=== PATIENT | female | born 1965 | race American Indian/Alaskan Native ===

== ENCOUNTER 2016-11-21 09:39 | Emergency (ER) | payer BC ==
--- NOTE | 2016-11-21 10:08 | Emergency Department Report ---
Chief Complaint: Neuro Symptoms/Deficit Stated Complaint: HEADACHE/LEFT SIDE NUMBNESS Time Seen by Provider: 11/21/16 10:03 - HPI History of Present Illness: 51 y/o female complain of intermittent headache x 1 week .pt state headache is current 10 at present .pt denies any n/v/d at present .denies any blurry vision at present . 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 - ROS Review of Systems: per HPI - Exam Vital Signs: Vital Signs 11/21/16 09:41 Temperature 98.3 F Pulse Rate 85 Blood Pressure 176/116 Physical Exam: GENERAL: The patient is well-developed and well-nourished. Patient is in NAD. HENT: Normocephalic. Atraumatic. Patient has moist mucous membranes. Throat: No erythema, swelling or exudates. EYES: Extraocular motions are intact, PERRL NECK: Supple. No meningitic signs are noted. There is no adenopathy noted. CHEST/LUNGS: Clear to auscultation bilaterally. No wheezing, rales or rhonchi noted. There is no respiratory distress noted. HEART/CARDIOVASCULAR: Regular rate and rhythm. Normal S1 S2. No murmurs, rubs , clicks, or gallops. ABDOMEN: Abdomen is soft, nontender.. Bowel sounds normoactive. There is no abdominal distention. Negative rebound tenderness. : Deferred. SKIN: There is no rash. There is no edema. There is no diaphoresis. NEURO: The patient is A&Ox3. The patient has no focal neurologic deficits. MUSCULOSKELETAL: There is no tenderness or deformity. There is no limitation range of motion. PSYCH: Pt has appropriate mood and affect. MSE screening note: Focused history and physical exam performed. Due to findings the following was ordered: ED Disposition for MSE Condition: Stable
[2016-11-21 10:40] LABS: Basophils % (Auto) 0.4 % (0.0-1.8); Eosinophils % (Auto) 2.7 % (0.0-4.3); Mean Corpuscular HGB Conc 33 % (30-34); Mean Corpuscular Hemoglobin 30 pg (28-32); Mean Corpuscular Volume 90 fl (79-97); Platelet Count 226 K/mm3 (140-440); Red Blood Count 4.35 M/mm3 (3.65-5.03); Red Cell Distribution Width 13.9 % (13.2-15.2); White Blood Count 8.9 K/mm3 (4.5-11.0)
[2016-11-21 10:55] LABS: INR 0.95 (0.87-1.13)
[2016-11-21 10:56] LABS: Partial Thromboplastin Time 34.6 Sec. (24.2-36.6)
[2016-11-21 10:57] LABS: Bacteria,Urine 1+ /HPF (Negative); Bilirubin,Urine NEG (Negative); Blood,Urine SM (Negative); Ketones,Urine NEG (Negative); Leukocyte Esterase,Urine NEG (Negative); Mucus,Urine FEW /HPF; Nitrite,Urine NEG (Negative); Protein,Urine <15 mg/dL mg/dL (Negative); Urobilinogen,Urine < 2.0 mg/dL (<2.0)
[2016-11-21 11:07] LABS: Alanine Aminotransferase 10 units/L (7-56); Albumin 4.1 g/dL (3.9-5); Albumin/Globulin Ratio 1.2 %; Alkaline Phosphatase 86 units/L (35-129); Anion Gap 17 mmol/L; Bilirubin,Total 0.9 mg/dL (0.1-1.2); Blood Urea Nitrogen 14 mg/dL (7-17); Calcium 9.1 mg/dL (8.4-10.2); Carbon Dioxide 27 mmol/L (22-30); Chloride 102.9 mmol/L (98-107); Glucose 73 mg/dL (65-100); Potassium 3.2 mmol/L (3.6-5.0); Sodium 144 mmol/L (137-145); Total Protein 7.6 g/dL (6.3-8.2)
--- NOTE | 2016-11-21 11:55 | Emergency Department Report ---
HPI - General Chief Complaint: Neuro Symptoms/Deficit Time Seen by Provider: 11/21/16 11:33 - HPI HPI: Chief complaint: Headache HPI: Patient is a 51-year-old female with a history of hypertension who states that for the last 8 days she's been having left-sided headache. Patient describes it as a sharp pain that shoots through the back of the left side of her head up through the posterior parietal area of the left side of her scalp. Patient states last for a few seconds and goes away and then comes back and has been getting worse over the last several days. Patient took Tylenol with no improvement and 800 of ibuprofen which helped the pain temporarily but has Come back. Patient denies fever, nausea, vomiting or diarrhea. Patient does not have any sinus drainage or upper respiratory symptoms. Patient states she feels numb around the left side of her mouth and she in general feels slower, especially on the left side. Mode of arrival: private car Source: [Patient Began: See above Duration: See above Context: Patient denies previous history of headaches. Patient denies any family history of cerebral aneurysms. Quality: Sharp Severity: 10 out of 10 Improved with: See above Worsened with: Nothing Associated signs and symptoms: See above ED Past Medical Hx - Past Medical History Previous Medical History?: Yes Hx Hypertension: Yes - Surgical History Past Surgical History?: No Additional Surgical History: partial hysterectomy - Social History Smoking Status: Never Smoker Substance Use Type: None - Medications Home Medications: Home Medications Medication Instructions Recorded Confirmed Last Taken Type Lisinopril/Hydrochlorothiazide 1 tab PO QDAY 11/21/16 11/21/16 Unknown History [Zestoretic 10-12.5 mg] traMADol [Ultram 50 MG tab] 50 mg PO Q6HR PRN #20 tablet 11/21/16 Unknown Rx ED Review of Systems ROS: Stated complaint: HEADACHE/LEFT SIDE NUMBNESS Other details as noted in HPI ROS Constitutional: No fever ENT: No uri symptoms Cardiovascular: No chest pain Respiratory: No sob or cough GI: No nausea vomiting or diarrhea : No dysuria frequency or urgency, Skin: No rash Neuro: No focal weakness Psych: No depression Nilesh/lymph: No edema Physical Exam - Physical Exam Vital Signs: Vital Signs 11/21/16 11/21/16 09:41 11:40 Temperature 98.3 F Pulse Rate 85 67 Respiratory 18 Rate Blood Pressure 176/116 Blood Pressure 169/98 [Right] O2 Sat by Pulse 98 Oximetry Physical Exam: GENERAL: The patient is well-developed well-nourished . HEENT: Normocephalic. Atraumatic. Extraocular motions are intact. Patient has moist mucous membranes. NECK: Supple. No meningitic signs are noted. There is no adenopathy noted. CHEST/LUNGS: Clear to auscultation. There is no respiratory distress noted. HEART/CARDIOVASCULAR: Regular. There is no tachycardia. There is no gallop rub or murmur. ABDOMEN: Abdomen is soft, nontender. Patient has normal bowel sounds. There is no abdominal distention. SKIN: There is no rash. There is no edema. There is no diaphoresis. NEURO: The patient is awake, alert, and oriented. Cranial nerves intact. The patient is cooperative. The patient has no focal neurologic deficits. The patient has normal speech. MUSCULOSKELETAL: There is no tenderness or deformity. There is no limitation range of motion. There is no evidence of acute injury. ED Course Vital Signs 11/21/16 11/21/16 09:41 11:40 Temperature 98.3 F Pulse Rate 85 67 Respiratory 18 Rate Blood Pressure 176/116 Blood Pressure 169/98 [Right] O2 Sat by Pulse 98 Oximetry ED Medical Decision Making - Lab Data Result diagrams: 11/21/16 10:25 11/21/16 10:25 Laboratory Tests 11/21/16 10:25 PT 12.6 INR 0.95 APTT 34.6 Thrombin Time 16.5 Urinalysis within normal limits. - Radiology Data Radiology results: report reviewed (CT of the head shows no acute process.) Critical care attestation.: If time is entered above; I have spent that time in minutes in the direct care of this critically ill patient, excluding procedure time. ED Disposition Clinical Impression: Headache Qualifiers: Headache type: unspecified Headache chronicity pattern: acute headache Intractability: not intractable Qualified Code(s): R51 - Headache Disposition: DISCHARGED TO HOME OR SELFCARE Is pt being admited?: No Does the pt Need Aspirin: No Condition: Stable Instructions: Chronic Hypertension (ED), Acute Headache (ED) Prescriptions: traMADol [Ultram 50 MG tab] 50 mg PO Q6HR PRN #20 tablet PRN Reason: Pain Referrals: SONIDO CHAN MD [Primary Care Provider] - 2-3 Days follow-up, a neurologist for further evaluation [Other] - 3-5 Days Time of Disposition: 13:57
--- NOTE | 2016-11-21 12:44 | Cat Scan Report ---
FINAL REPORT PROCEDURE: CT HEAD/BRAIN WO CON TECHNIQUE: Computerized tomography of the head was performed without contrast material. HISTORY: headache COMPARISON: None FINDINGS: The skull base and calvarium are intact. The visualized, mastoid air cells and middle ears are clear. Brain volume is age appropriate. Subtle deep white matter microvascular ischemic change is present. Beam hardening artifact slightly limits the examination. Small physiologic bilateral basal ganglia calcifications are present. There is no hydrocephalus, intra or extra-axial hemorrhage. There is no CT evident acute infarction. IMPRESSION: Study partially compromised due to artifact. Suspect mild small vessel disease. No evident acute intracranial abnormality. If symptoms persist consider MRI with and without contrast for most sensitive further evaluation.
[2016-11-21] MEDS ORDERED: NORCO 5/325 ONE (14:22)
[2016-11-21 14:29] VITALS: BP 158/96
[2016-11-21] MEDS ORDERED: NORCO 5/325 PO ONE (14:29)
== END 2016-11-21 14:32 | disposition home or self-care (01) ==
LOC: ED 09:39
DX: R51 Headache (principal); I10 Essential (primary) hypertension; Z90.711 Acquired absence of uterus with remaining cervical stump
CPT/HCPCS: 36415; 70450; 80053; 81001; 85025; 85610; 85670; 85730; 93005; 93010

== ENCOUNTER 2017-05-06 08:39 | Outpatient (CLI) | payer BC ==
--- NOTE | 2017-05-06 09:57 | XRay Report ---
LEFT HIP RADIOGRAPHS INDICATION: Left hip pain. COMPARISON: None similar. FINDINGS: An AP pelvic radiograph with frog-leg projection of the left hip demonstrate intact articulation. Imaged bilateral SI and hip joints appear intact. Nonobstructive bowel gas pattern. Numerous pelvic phleboliths. Lower lumbar spine degenerative changes. CONCLUSION: No acute left hip radiographic abnormality with few other findings, as above. Thank you for the opportunity to participate in this patient's care.
--- NOTE | 2017-05-06 09:59 | XRay Report ---
LUMBAR SPINE RADIOGRAPHS: INDICATION: Left hip pain. COMPARISON: None similar. FINDINGS: AP, oblique and lateral lumbar spine radiographs demonstrate normal vertebral body stature and alignment. Slight L4 degenerative spurring. Mild L5-S1 disc narrowing not entirely excluded versus projectional. Lumbosacral facet arthropathy though suspected. No evidence of a pars defect. Nonobstructive bowel gas pattern with colonic stool/possible constipation. Few pelvic phleboliths. Intact SI joints. CONCLUSION: Lower lumbar degenerative changes, as described. Thank you for the opportunity to participate in this patient's care.
== END 2017-05-06 08:40 | disposition home or self-care (01) ==
LOC: XRAY 08:39
PROVIDERS: ATTEND Family Medicine
DX: M47.896 Other spondylosis, lumbar region (principal); I87.8 Other specified disorders of veins; M25.552 Pain in left hip; I10 Essential (primary) hypertension
CPT/HCPCS: 72110

== ENCOUNTER 2020-12-10 08:14 | Emergency (ER) | payer SELFPAY ==
[2020-12-10 08:55] VITALS: BP 108/70
--- NOTE | 2020-12-10 08:56 | Emergency Department Report ---
Minor Respiratory - HPI Chief Complaint: Pain General Stated Complaint: FLU SYMPTOMS Time Seen by Provider: 12/10/20 08:53 Duration: 2 Days (Body aches) Pain Location: Other Severity: mild Minor Respiratory: Yes Able to Tolerate Fluids, Yes Cough, No Rhinorrhea, No Sore Throat, No Ear Pain, No Sick Contacts, No Hemoptysis, No Chest Pain, No Shortness of Breath, No Fever Other History: Patient is a 55-year-old female that comes to the emergency room with decreased taste, cough and body aches since yesterday. She has no known Covid exposure but she is concerned for Covid. Patient did not get influenza immunization this year. Patient has not seen her primary care doctor. She is taking nothing for her symptoms prior to arrival. Vital signs are normal in triage. Patient is -[place], obese with history of hypertension. She has no underlying lung disease. She is ambulatory nontoxic and [id number] in triage ED Review of Systems ROS: Stated complaint: FLU SYMPTOMS Other details as noted in HPI Comment: All other systems reviewed and negative ED Past Medical Hx - Past Medical History Previous Medical History?: Yes Hx Hypertension: Yes - Surgical History Past Surgical History?: Yes Additional Surgical History: partial hysterectomy - Family History Family history: no significant - Social History Smoking Status: Never Smoker Substance Use Type: None - Medications Home Medications: Home Medications Medication Instructions Recorded Confirmed Last Taken Type Lisinopril/Hydrochlorothiazide 1 tab PO QDAY 11/21/16 11/21/16 Unknown History [Zestoretic 10-12.5 mg] traMADoL [Ultram 50 MG tab] 50 mg PO Q6HR PRN #20 tablet 11/21/16 Unknown Rx Butalb/Acetamin/Caff 50-325-40 1 tab PO Q6HR PRN #10 tab 09/11/18 Unknown Rx [Fioricet] Cetirizine HCl [ZyrTEC] 10 mg PO DAILY #30 capsule 12/10/20 Unknown Rx Fluticasone [Flonase] 1 spray NS QDAY #1 bottle 12/10/20 Unknown Rx predniSONE [Deltasone] 20 mg PO DAILY #5 tablet 12/10/20 Unknown Rx Minor Respiratory Exam - Exam General: Vital signs noted. No distress. Alert and acting appropriately. HEENT: Yes Moist Mucous Membranes, No Pharyngeal Erythema, No Pharyngeal Exudates, No Rhinorrhea, No Conjuctival Injection, No Frontal Tenderness, No Maxillary Tenderness Ear: Neither TM Bulge, Neither TM Erythema, Neither EAC Pain, Neither EAC Discharge Neck: Yes Supple, No Adenopathy Lungs: Yes Good Air Exchange, No Wheezes, No Ronchi, No Stridor, No Cough, No Labored Respirations, No Retractions, No Use of Accessory Muscles, No Other Abnormal Lung Sounds Heart: Yes Regular, No Murmur Abdomen: Yes Normal Bowel Sounds, No Tenderness, No Peritoneal Signs Skin: No Rash, No Edema Neurologic: Alert and oriented, no deficits. Musculoskeletal: Unremarkable. ED Course Vital Signs 12/10/20 08:42 Temperature 98.9 F Pulse Rate 83 Respiratory 20 Rate Blood Pressure 108/70 O2 Sat by Pulse 98 Oximetry ED Medical Decision Making - Radiology Data Radiology results: report reviewed, image reviewed nap - Medical Decision Making xray with nap Vital Signs 12/10/20 08:42 Temperature 98.9 F Pulse Rate 83 Respiratory 20 Rate Blood Pressure 108/70 O2 Sat by Pulse 98 Oximetry I have educated the patient on the results of her x-ray. She is concerned that she has Covid. I explained to her that she has no evidence of Covid on her x- ray but that does not mean that she would not have a positive Covid swab. I explained to her that the ER does not do Covid testing. I have referred her to urgent cares in the area that will do rapid success which she wants to have done. However, at this point patient has normal vital signs she has no fever no hypoxia. So even if she did have Covid there would be nothing to do but quarantine and treat her symptoms. Patient verbalizes an understanding and is being discharged home with primary care follow-up. - Differential Diagnosis uri/covid/pna Critical care attestation.: If time is entered above; I have spent that time in minutes in the direct care of this critically ill patient, excluding procedure time. ED Disposition Clinical Impression: Upper respiratory infection Disposition: -01 TO HOME OR SELFCARE Is pt being admited?: No Does the pt Need Aspirin: No Condition: Stable Instructions: Upper Respiratory Infection, Adult, [id number] Additional Instructions: meds as ordered quarenteen as we discussed stay well hydrated with water Prescriptions: predniSONE [Deltasone] 20 mg PO DAILY #5 tablet Fluticasone [Flonase] 1 spray NS QDAY #1 bottle Cetirizine HCl [ZyrTEC] 10 mg PO DAILY #30 capsule Referrals: PRIMARY CAREMD [Primary Care Provider] - 3-5 Days PARTH CORNEJO MD [Staff Physician] - 3-5 Days Forms: Work/School Release Form(ED) Time of Disposition: 10:06
--- NOTE | 2020-12-10 09:52 | XRay Report ---
XR chest routine 2V INDICATION / CLINICAL INFORMATION: sob. COMPARISON: None available. FINDINGS: SUPPORT DEVICES: None. HEART /PULMONARY VASCULATURE: No significant abnormality. LUNGS / PLEURA: No significant pulmonary or pleural abnormality. No pneumothorax. ADDITIONAL FINDINGS: No significant additional findings. IMPRESSION: 1. No acute findings. Signer Name: Mike Locke MD Signed: 12/10/2020 9:48 AM Workstation Name: [id number]
== END 2020-12-10 10:00 | disposition home or self-care (01) ==
LOC: ED 08:14
DX: J06.9 Acute upper respiratory infection, unspecified (principal); I10 Essential (primary) hypertension; Z90.710 Acquired absence of both cervix and uterus; Z79.899 Other long term (current) drug therapy
CPT/HCPCS: 71046; 99282